=== PATIENT | male | born 1965 | race Caucasian/White ===

== ENCOUNTER 2023-01-28 09:51 | Emergency (ER) | payer OTHER ==
[~2023-01-28] VITALS: Ht 182.9 cm; Wt 99.8 kg
[2023-01-28] MEDS ORDERED: LISI40TA13 PO (10:03)
[2023-01-28] MEDS ORDERED: IBUP-1955 PO (11:02)
[2023-01-28 11:26] VITALS: BP 137/66; O2SAT 99
== END 2023-01-28 11:26 | disposition home or self-care (01) ==
LOC: ER 09:51
DX: S82.832A Other fracture of upper and lower end of left fibula, initial encounter for closed fracture (principal); I10 Essential (primary) hypertension; Z79.899 Other long term (current) drug therapy; X50.1XXA Overexertion from prolonged static or awkward postures, initial encounter; Y93.89 Activity, other specified; Y92.89 Other specified places as the place of occurrence of the external cause; Y99.8 Other external cause status
CPT/HCPCS: 73590; 73610; A4663